=== PATIENT | female | born 1955 | race Caucasian/White ===

== ENCOUNTER 2019-09-22 01:25 | Outpatient (CLI) | payer BC, SELFPAY ==
[2019-09-22 18:35] LABS: SARS-CoV-2 RNA PCR Negative
== END 2019-09-22 01:26 | disposition home or self-care (01) ==
LOC: ANHCOVIDDT 01:26
PROVIDERS: PCP Family Medicine; Visit Provider Internal Medicine Gastroenterology
DX: Z01.812 Encounter for preprocedural laboratory examination (principal); Z11.59 Encounter for screening for other viral diseases
CPT/HCPCS: 87635; C9803; U0003

== ENCOUNTER 2019-09-24 01:41 | Day surgery (SDC) | payer BC, SELFPAY ==
[2019-09-16 14:33] VITALS: BMI 30.2
[2019-09-24 08:52] VITALS: BP 132/90; PULSE 78; RESP 18; TEMP 36.3; O2SAT 100
[2019-09-24] MEDS: LACTATED RINGERS 1,000 ML 150 ML IV CONT (08:54)
--- NOTE | 2019-09-24 09:03 | WPDANESEPPF ---
Anes - Initial Pre Proc Eval Procedure: Operation Date: 09/24/19 10:00 Proposed Procedures p Screening Colonoscopy - Carlos Velazquez MD Date/Time: 09/24/19 09:03 Surgeon: Carlos Velazquez MD Pre Op Diagnosis: Neoplasm Screening Patient Data Age: 64 Gender: F Height: 5 ft 6 in Weight: 82.6 kg Last Vital Signs Temp 36.3 C L 09/24/19 08:52 Pulse 78 09/24/19 08:52 Resp 18 09/24/19 08:52 BP 132/90 09/24/19 08:52 Pulse Ox 100 09/24/19 08:52 Allergies Allergy/AdvReac Type Severity Reaction Status Date / Time hydromorphone [From Dilaudid] AdvReac Nausea and Verified 09/24/19 08:51 Vomiting morphine AdvReac Nausea Verified 09/24/19 08:51 Home Medications Medication Instructions Recorded Confirmed Type aspirin 81 mg PO DAILY 09/16/19 09/16/19 History atorvastatin 10 mg PO DAILY 09/16/19 09/16/19 History Patient hx anesthesia problems: none Family hx anesthesia problems: none [facility] Past Medical History Medical History (Updated 09/24/19 @ 09:04 by Edgar Leon MD) Hyperlipidemia Overweight Anes - Eval Final PreProcedure Day of Procedure 09/24/19 09:03 Patient weight: overweight Heart: regular rate and rhythm Lungs: clear to auscultation Airway: Mallampati scale class II Neurological: alert and oriented Last oral intake: >/= 8 hours ASA classification: II Emergent: no Anesthetic plan: proceed Anesthesia type and monitoring: general GIVS and standard monitoring Informed Consent: The patient's anesthetic plan and its attendant risks and benefits were discussed with the patient/family/POA. Questions were solicited and answers provided to the satisfaction of the patient/family/POA.
--- NOTE | 2019-09-24 09:07 | PM.HPGS ---
History of Present Illness History of Present Illness Consent: Risks, benefits, and alternatives have been discussed and questions answered. Patient agrees to proceed with procedure. Chief complaint: Neoplasm Screening Narrative: Joan Monroe is a 64 year old W female referred for screening colonoscopy. Patient's last colonoscopy was 10 years ago. Patient is asymptomatic and there is no family history of colon polyps or colon cancer. PMFSH Past Medical History Medical History Hyperlipidemia Overweight Surgical History Surgical History (Updated 09/24/19 @ 09:09 by Carlos Velazquez MD) History of bilateral knee replacement History of dilatation and curettage Status post hysterectomy Meds Home Medications and Allergies Home Medications Medication Instructions Recorded Confirmed Type aspirin 81 mg PO DAILY 09/16/19 09/16/19 History atorvastatin 10 mg PO DAILY 09/16/19 09/16/19 History Allergies Allergy/AdvReac Type Severity Reaction Status Date / Time hydromorphone [From Dilaudid] AdvReac Nausea and Verified 09/24/19 08:51 Vomiting morphine AdvReac Nausea Verified 09/24/19 08:51 Vital Signs Vital Signs - 24 hr 09/24/19 08:52 Temperature 36.3 C L Pulse Rate 78 Respiratory Rate 18 Blood Pressure 132/90 Pulse Oximetry 100 Exam Const: Orientation/consciousness: patient oriented x3 Resp: Auscultation: clear to auscultation bilaterally Cardio: Rate: regular rate Rhythm: regular rhythm Heart sounds: no murmurs GI: GI Palp: Yes Soft to palpation, No Tenderness to palpation present (GI), Yes No hepatosplenomegaly present and No Palpable mass present Auscultation: normal bowel sounds Neuro: General: patient oriented x3 and no focal motor deficits Extrem: General: no pedal edema Assessment and Plan Additional Plan screening colonoscopy in average risk patient
[2019-09-24] MEDS: SIMETHICONE ORAL SUSPENSION 20 MG/0.3 ML 30 ML BOTTLE 0.6 ML IRRIGATION (10:31)
[2019-09-24 10:40] VITALS: BP 86/51; PULSE 67; RESP 12; O2SAT 100
[2019-09-24 10:50] VITALS: BP 103/66; PULSE 53; RESP 14; O2SAT 100
[2019-09-24 11:00] VITALS: BP 122/78; PULSE 62; RESP 15; O2SAT 100
== END 2019-09-24 11:18 | disposition home or self-care (01) ==
PROVIDERS: PCP Family Medicine; Visit Provider Internal Medicine Gastroenterology
PROC: 0DJD8ZZ Inspection of Lower Intestinal Tract, Via Natural or Artificial Opening Endoscopic (ICD-10-PCS; CPT 45378; principal; 2019-09-24 10:00)
DX: Z12.11 Encounter for screening for malignant neoplasm of colon (principal); E78.5 Hyperlipidemia, unspecified; Z79.82 Long term (current) use of aspirin
CPT/HCPCS: 45378; J2704; J7120